=== PATIENT | female | born 1980 | race Hispanic/Latino ===

== ENCOUNTER 2019-09-18 10:51 | Emergency (ER) | payer BC, OTHER ==
[2019-09-18] MEDS ORDERED: EPINEPHRINE 1 MG/ML AMPULE ONE (13:06)
== END 2019-09-18 11:33 | disposition home or self-care (01) ==
LOC: EDH 10:51
DX: M54.2 Cervicalgia (principal); M54.9 Dorsalgia, unspecified; M25.511 Pain in right shoulder; V49.40XA Driver injured in collision with unspecified motor vehicles in traffic accident, initial encounter; Y93.89 Activity, other specified; Y92.89 Other specified places as the place of occurrence of the external cause; Y99.8 Other external cause status
CPT/HCPCS: J0171

== ENCOUNTER → 2021-01-24 | Outpatient (CLI) | payer BC | END | disposition home or self-care (01) | LOC: RAH 08:14 | PROVIDERS: ATTEND Specialist | DX: Z12.31 Encounter for screening mammogram for malignant neoplasm of breast (principal) | CPT/HCPCS: 77067 ==

== ENCOUNTER → 2024-09-20 | Outpatient (CLI) | payer BC ==
--- NOTE | 2024-09-20 11:52 | HMCIMG ---
US TRANSVAGINAL NON-OB HISTORY: No additional history given. COMPARISON: None TECHNIQUE: Transabdominal pelvic ultrasound study was performed. FINDINGS: The uterus measures 6.5 x 4 x 5.1 cm. The right ovary measures 1.7 x 1.1 x 1.9 cm. The left ovary measures 2.3 x 1.3 x 1.3 cm. Flow is seen in both ovaries. Endometrial thickness is 3 mm. Fibroid is seen adjacent to endometrium measuring 7 x 5 x 7 mm. No free fluid is seen in the cul-de-sac. IMPRESSION: 1. No adnexal mass is seen. Suspect small fibroid measuring 7 by 5-7 images
== END | disposition home or self-care (01) ==
LOC: RAH 09:58
PROVIDERS: ATTEND Obstetrics & Gynecology
DX: R93.89 Abnormal findings on diagnostic imaging of other specified body structures (principal); R10.2 Pelvic and perineal pain; N92.0 Excessive and frequent menstruation with regular cycle
CPT/HCPCS: 76830

== ENCOUNTER → 2024-09-21 | Outpatient (CLI) | payer BC ==
--- NOTE | 2024-09-22 09:41 | HMCIMG ---
MAMMO SCREENING BILATERAL HISTORY: Screening mammogram. COMPARISON: 01/24/2021 TECHNIQUE: Bilateral screening mammogram with CAD was performed with craniocaudal and mediolateral oblique projections. FINDINGS: There are scattered areas of fibroglandular density. There is no evidence of a dominant mass, or suspicious microcalcification. There is no evidence of nipple retraction or skin thickening. IMPRESSION: 1. Stable mammogram. Patient was entered into a reminder system with a target due date for their next mammogram. BI-RADS: CATEGORY 2: BENIGN FINDINGS Recommend monthly self breast exam as well as annual clinical examination. A negative x-ray should not delay biopsy if a dominant or clinically suspicious mass is present, since 8-10% of cancers are not identified by mammography. Dense breasts particularly, may obscure an underlying neoplasm. Some of these may be detected clinically and therefore, clinical examination is an essential part of breast evaluation.
== END | disposition home or self-care (01) ==
LOC: RAH 15:43
PROVIDERS: ATTEND Obstetrics & Gynecology
DX: Z12.31 Encounter for screening mammogram for malignant neoplasm of breast (principal); R92.323 Mammographic fibroglandular density, bilateral breasts
CPT/HCPCS: 77067

== ENCOUNTER 2025-01-26 06:58 | Day surgery (SDC) | payer BC ==
[2025-01-20 13:53] LABS: BASOPHILS # (AUTO) 0.01 K/uL (0.00-0.20); BASOPHILS % (AUTO) 0.2 % (0.0-5.0); EOSINOPHILS # (AUTO) 0.08 K/uL (0.00-0.70); EOSINOPHILS % (AUTO) 1.8 % (0.0-8.0); IMMATURE GRANULOCYTE ABSOLUTE 0.01 K/uL (0-1); LYMPHOCYTES # (AUTO) 1.3 K/uL (1.0-4.8); MEAN CORPUSCULAR HEMOGLOBIN 30.2 pg (27.0-33.0); MEAN CORPUSCULAR HGB CONC 33.3 g/dL (32.0-36.0); MEAN CORPUSCULAR VOLUME 90.5 fL (79-99); MONOCYTES # (AUTO) 0.4 K/uL (0.1-1.0); MONOCYTES % (AUTO) 7.7 % (3.0-13.0); NEUTROPHILS # (AUTO) 2.8 K/uL (1.8-7.7); NEUTROPHILS % (AUTO) 61.1 % (40.0-77.0); PLATELET COUNT (AUTO) 200 K/uL (130-400); RED BLOOD CELL COUNT(AUTO) 4.31 MIL/uL (4.00-5.50); RED CELL DISTRIBUTION WIDTH 12.5 % (11.0-15.5); WHITE BLOOD COUNT (AUTO) 4.6 K/uL (4.8-10.8)
[2025-01-20 13:55] VITALS: BP 115/53; PULSE 72; RESP 14; TEMP 98.8
[2025-01-20 14:12] LABS: CREATININE 0.7 mg/dL (0.5-1.0); POTASSIUM 3.7 mmol/L (3.5-5.1)
[2025-01-26] VITALS (14 sets, daily range): BP systolic 112–136; BP diastolic 62–78; PULSE 63–72; RESP 12–18; TEMP 97–98.1
[~2025-01-26] VITALS: Ht 157.5 cm; Wt 63.6 kg
[~2025-01-26 06:58] MED LIST: IRON150C5 PO; [UNRECOGNIZED DRUG - CODE] PO
[2025-01-26] MEDS: LACTATED RINGERS 1000ML 1,000 ML IV ONE (07:43)
[2025-01-26] MEDS ORDERED: proPOFol 10 MG/ML 20ML VIAL IV ONE (08:53)
[2025-01-26] MEDS ORDERED: dexaMETHasone SOD PHOSPHATE 4 MG/ML 1ML VIAL ONE (08:53)
[2025-01-26] MEDS ORDERED: MIDAZOLAM HCL 1 MG/ML 2ML VIAL ONE (08:53)
[2025-01-26] MEDS ORDERED: LIDOCAINE HCL MPF 1% 5ML VIAL ONE (08:53)
[2025-01-26] MEDS ORDERED: FENTanyl CITRate PF 50 MCG/1 ML 2ML VIAL ONE (08:53)
[2025-01-26] MEDS ORDERED: ketOROlac 30MG VIAL (30MG/ML) ONE ×2 (09:03→09:04)
[2025-01-26] MEDS ORDERED: ondanSETRON 4MG INJ ONE (09:04)
[2025-01-26] MEDS ORDERED: ePHEDrine SULFate 50 MG/ML AMPULE ONE (09:06)
--- NOTE | 2025-01-26 09:28 | OP ---
Operative Note: DATE OF PROCEDURE: 01/26/25 SURGEON: JOVANY BAEZA MD CHEMIST ENZYMES: [none] ANESTHESIA: [general] ANESTHESIOLOGIST/PROTECTIVE SIGNAL OPERATIONS SUPERVISOR: [general] PREOPERATIVE DIAGNOSIS: [abnormal uterine bleeding] POSTOPERATIVE DIAGNOSIS: [same plus intracavitary, submucous fibroids] SYNOPSIS: [na] PROCEDURE: [Hysteroscopy D&C] ESTIMATED BLOOD LOSS: [minimal] INDICATIONS: [na] DESCRIPTION OF PROCEDURE: [The patient and her were visited in the holding area and she had no new questions and was ready to proceed. She declined placement of Liletta iud. She was taken to the operating room and placed under general anesthesia and prepped and draped in the normal sterilefashion in the dorsal lithotomy position and the bladder was drained. A time out was taken to confirm the patient's identity, the procedure, her allergies and medication administration. A right angle retractor was placed posteriorly and the anterior cervix was grasped with a single tooth tenaculum, the uterus sounded to about 8 cm and was retroverted, the cervix was gradually dilated to 8 mm and the hysteroscope with sterile saline distension media was placed with findings of a clean cavity, normal tubal ostia and an anterior mostly intracavitary and posterior more submucous fibroid. The hysteroscope was removed and the uterus was curetted until gritty with return of a scanty amount of tissue, the hysteroscope was reintroduced and the cavity was noted to be clean. Photos were taken. The tenaculum and retractor were removed. There was scant bleeding at the end of the case. The patient was awakened and taken to the recovery room in stable condition. Her will be notified of her stability and the findings. ] JOVANY BAEZA MD Jan 26, 2025 09:28
--- NOTE | 2025-01-26 10:55 | NUR ---
Full and complete discharge instructions given to Patient and Family both verbally and in writing. Explained Surgical procedure Hysteroscopy and D/C precautions and follow up. All questions answered. PIV removed with catheter tip intact. Home with Family W/C to POV.
== END 2025-01-26 11:00 | disposition home or self-care (01) ==
LOC: DAH 06:58
PROVIDERS: ATTEND Obstetrics & Gynecology
DX: N93.9 Abnormal uterine and vaginal bleeding, unspecified (principal); N85.8 Other specified noninflammatory disorders of uterus; D25.9 Leiomyoma of uterus, unspecified; F41.9 Anxiety disorder, unspecified; F32.A Depression, unspecified; Z86.2 Personal history of diseases of the blood and blood-forming organs and certain disorders involving the immune mechanism; Z79.899 Other long term (current) drug therapy
CPT/HCPCS: 80048; 84703; 85025; 36415; 58558; 81025; 88305; A6260; J1100; J1885 ×2; A4663; J7030; A4351; A4355; J7120; J3010; J3490 ×2; J2250; J2704; J2405; A4215; A4213; A4222; A4221; A4216; A4223 ×2